=== PATIENT | female | born 1990 | race Caucasian/White ===

== ENCOUNTER 2023-08-20 15:00 | Emergency (ER) | payer OTHER, SELFPAY ==
[2023-08-20 15:02] VITALS: BP 175/112
[2023-08-20 16:34] VITALS: BMI 59.5
[2023-08-20 16:48] VITALS: BP 133/94
[2023-08-20 17:05] LABS: % Basophils 0.2 % (0-2); % Eosinophils 2.1 % (0-6); % Immature Granulocytes 0.5 % (0-0.5); % Lymphocytes 24.9 % (20.5-51.1); % Monocytes 5.1 % (1.7-9.3); % Neutrophils 67.2 % (42.2-75.2); Absolute Eosinophils 0.2 10^3/uL (0-0.7); Absolute Immature Granulocytes 0.1 10^3/uL (0-0.05); Absolute Lymphocytes 2.5 10^3/uL (1.2-3.4); Absolute Monocytes 0.5 10^3/uL (0.1-0.6); Absolute Neutrophils 6.8 10^3/uL (1.4-6.5); Hematocrit 44.3 % (37.0-47.0); Hemoglobin 15.6 g/dL (12.0-16.0); Mean Corp Hgb Conc. 35.2 g/dL (33.0-37.0); Mean Corpuscular Hgb 27.3 pg (27.0-31.0); Mean Corpuscular Volume 77.6 fL (81.0-99.0); Mean Platelet Volume 10.8 fL (7.4-10.4); Nucleated Red Blood Cells % 0 %; Platelet Count 330 10^3/uL (130-400); Red Blood Cell Count 5.71 10^6/uL (4.20-5.40); Red Cell Dist. Width 13.3 % (11.5-14.5); White Blood Cell Count 10.1 10^3/uL (4.8-10.8)
[2023-08-20 17:08] LABS: Urine Albumin Trace (Neg - Trace); Urine Bilirubin 1+ (Negative); Urine Character Clear (Clear); Urine Color Yellow; Urine Glucose Negative (Negative); Urine Ketone 2+ (Negative); Urine Leukocyte Trace (Negative); Urine Nitrite Negative (Negative); Urine Occult Blood 4+ (Negative); Urine Specific Gravity 1.025 (<1.030); Urine Urobilinogen Negative (Neg - 1+)
[2023-08-20 17:13] LABS: HCG, Serum Qualitative Screen Negative
[2023-08-20 17:17] LABS: ALT (SGPT) 44 U/L (0-35); AST (SGOT) 41 U/L (14-36); Albumin 4.6 g/dl (3.5-5.0); Alkaline Phosphatase 97 U/L (38-126); Blood Urea Nitrogen 10 mg/dl (7-17); Calcium 9.4 mg/dl (8.4-10.2); Carbon Dioxide 23 mmol/L (22-30); Chloride 105 mmol/L (98-107); Estimated Creatinine Clearance > 125 ml/min; Glucose 94 mg/dl (70-99); Lipase 139 U/L (23-300); Potassium 3.5 mmol/L (3.5-5.1); Sodium 140 mmol/L (135-145); Total Bilirubin 0.8 mg/dl (0.2-1.3); Total Protein 7.9 g/dl (6.3-8.2); eGFR > 60.00
[2023-08-20 17:21] LABS: Urine Squamous Cell 16-20 /LPF (Few)
[2023-08-20 17:24] LABS: Urine Bacteria Many (Negative)
--- NOTE | 2023-08-20 17:25 | ED.GENMED ---
History of Present Illness
General
Chief Complaint: Abdominal Pain
Source: patient
Exam Limitations: none
Time Seen by Provider: 08/20/23 16:53
Nursing documentation reviewed up to this point in time: agreed with
Travel History
Have you had any contact with someone who has COVID-19?: No
Do you have any symptoms of coronavirus? Fever > 100 degrees, chills, cough, shortness of breath, sore throat, loss of taste or smell, muscle aches, or headache?: No
History of Present Illness
History of Present Illness:
Patient status post cholecystectomy 10 years ago, presents to ED secondary to recurrent epigastric pain radiating to the back over the past 1 week. Epigastric pain described as sharp, without any alleviating or exacerbating factors. Patient states
that her symptoms are similar to what she has experienced in the past, secondary to pancreatitis. Denies fever or chills. Reports nausea sensation without vomiting, along with diarrhea. Denies recent travel. Denies sick contact. Denies trauma.
Patient does report starting new blood pressure medication as well as depression medication 2 months ago.
Past History
Past History
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
ED Past Surgical History: Cholecystectomy
Social History
Tobacco: Non-smoker
Living: with family
Review of Systems
Review of Systems
Allergies reviewed?: Yes
All Other Systems: ROS reviewed and negative except as documented in HPI and ROS
Constitutional: Reports no symptoms; Denies fever
EENT: Reports no symptoms
Respiratory: Reports no symptoms
Cardiac: Reports no symptoms
ABD/GI: Reports abdominal pain, nausea and diarrhea; Denies vomiting
: Reports no symptoms
Musculoskeletal: Reports no symptoms
Skin: Reports no symptoms
Neurological: Reports no symptoms
Phy Exam
Physical Exam
Physical Exam:
Physical Exam
General: no apparent distress, not acutely ill. afebrile. overweight
Head: nc/at. eomi
Neck: supple. no meningeal signs.
Heart: s1/s2 regular rate and rhythm, no murmur. equal radial pulses.
Lungs: no acute respiratory distress. clear bilaterally
Abdomen: normal bowel sounds. not tender.
Neuro: alert and oriented. no focal neurological deficits
Skin: no rash
Psychiatric: well kept. interactive and cooperative
Extremities: no edema. no calf tenderness.
Course
Orders/Labs/Results
Orders:
Orders
08/20/23 15:06
Test Result ONCE
08/20/23 16:45
Complete Blood Count/With Diff Urgent
Comprehensive Metabolic Panel Urgent
HCG, Serum Qualitative Screen Urgent
Lipase Urgent
08/20/23 16:52
UA Reflex to Culture [Urinalysis Reflex To Culture] Urgent
Date Specimen was Collected: 08/20/23
Time Specimen was Collected: 16:51
Urine Microscopic Reflex Cult Urgent
Urine Culture Urgent
WARREN Source: U
Specimen Description:
Date Specimen was Collected: 08/20/23
Time Specimen was Collected: 16:51
08/20/23 17:24
US Abdomen Complete/Upper Urgent
Comment: hx cholecystectomy
Reason For Exam: epigastric/RUQ pain
08/20/23 17:27
0.9% Sodium Chloride 500 ml [Nss] 500 ml IV BOLUS
Abnormal Lab Results
08/20/23 08/20/23
16:45 16:52
RBC 5.71 H 10^6/uL
(4.20-5.40)
MCV 77.6 L fL
(81.0-99.0)
MPV 10.8 H fL
(7.4-10.4)
Abs Immat Gran (auto) 0.1 H 10^3/uL
(0-0.05)
Absolute Neuts (auto) 6.8 H 10^3/uL
(1.4-6.5)
AST 41 H U/L
(14-36)
ALT 44 H U/L
(0-35)
Urine Ketones 2+ A
(Negative)
Ur Occult Blood Reflex 4+ A
(Negative)
Urine Bilirubin 1+ A
(Negative)
Leukocyte Esterase Rfl Trace A
(Negative)
Urine RBC 3-6 A /HPF
(0-2)
Urine Bacteria (Reflex) Many A
(Negative)
08/20/23 16:45
08/20/23 16:45
Vital Signs
Initial and Last Documented VS:
Initial Vital Signs
Temp Pulse Resp BP Pulse Ox
98.4 F 98 16 175/112 96
08/20/23 15:02 08/20/23 15:02 08/20/23 15:02 08/20/23 15:02 08/20/23 15:02
Last Documented Vital Signs
Temp Pulse Resp BP Pulse Ox
98.4 F 74 16 143/98 99
08/20/23 15:02 08/20/23 19:00 08/20/23 15:02 08/20/23 18:09 08/20/23 19:00
MDM/Problems Addressed
MDM/Problems Addressed:
Patient with an unremarkable workup in ED, including blood work and ultrasound. Patient otherwise remains afebrile, hemodynamically stable, and nontoxic-appearing. Patient's presenting symptoms likely secondary to gastritis versus reflux versus
less likely biliary colic versus pancreatitis. Patient will be discharged home in stable condition to the care of her mother, with recommendation to follow-up with GI physician as an outpatient, if symptoms persist. In the meantime, recommended
dietary modification along with PPI to be taken as an outpatient. Patient advised to return to ED with worsening symptoms, i.e. fever/worsening pain/vomiting. Patient expresses understanding at time of discharge.
*Radiology
Radiology exam reviewed: radiology read reviewed
*Critical Care Note
Total Time (30-74mins, 75-104mins- exclusive of procedures): Not Applicable
ED Attending Note
-
Portions of this chart may have been created with voice recognition software.� Occasional wrong word or��sound alike� substitutions may have occurred due to the inherent limitations of voice recognition software.
Discharge Plan
Departure
Patient Disposition: Home (Routine Discharge)
Date of Disposition: 08/20/23
Time of Disposition: 20:02
Patient with high blood pressure during this ER visit?: Yes
Condition: Good
Discharge Problem:
Abdominal pain
Instructions: [place] Diet, Gastritis (DC), Ulcer and Gastritis Diet, Abdominal Pain
Prescriptions:
No Action
chlorthalidone 25 MG tablet
25 mg PO DAILY
sertraline 50 MG tablet
50 mg PO HS
lisinopril 20 MG tablet
20 mg PO DAILY Qty: 30 0RF
Referrals:
Racquel Evans MD [Family Provider] -
Yamil Ryan MD [Active] -
Activity Restrictions/Additional Instructions:
As discussed, please follow-up with your primary care physician and/or referred to GI physician for further evaluation and treatment.
Interventions
Interventions:
*Risk Screen - Suicide Last Done: 08/20/23 16:33
*General Assessment Last Done: 08/20/23 16:33
*Neglect/Abuse Screening Last Done: 08/20/23 16:33
ED- Fall Risk Assessment Last Done: 08/20/23 18:33
*ED COVID-19 Vaccine History Last Done: 08/20/23 16:33
*Nursing Disposition Last Done: 08/20/23 20:29
VQ-Obpbnj-Vemrbicarq Assessment Last Done: 08/20/23 16:31
Discharge Date and Time
Discharge Date/Time: 08/20/23 20:29
[2023-08-20 18:09] VITALS: BP 143/98
[2023-08-20] MEDS: NSS 500 IV (18:11)
== END 2023-08-20 20:29 | disposition home or self-care (01) ==
LOC: EMR 15:00
PROVIDERS: Emergency Medicine; EMERGENCY PHYSICIAN Emergency Medicine; FAMILY PHYSICIAN Internal Medicine
DX: R10.13 Epigastric pain (principal); F32.A Depression, unspecified; Z90.49 Acquired absence of other specified parts of digestive tract
CPT/HCPCS: 99284; 96360; 76700; 80053; 81003; 81015; 83690; 84703; 85025; 87086

== ENCOUNTER 2023-11-07 06:24 | Day surgery (SDC) | payer OTHER, SELFPAY ==
[2023-11-07 08:59] VITALS: BMI 57.1
[2023-11-07 09:00] VITALS: BP 154/84; BMI 57.1
[2023-11-07 09:45] VITALS: BP 154/84
[2023-11-07 09:47] VITALS: BP 154/98
[2023-11-07 10:00] VITALS: BP 139/93
[2023-11-07 10:15] VITALS: BP 125/72
[2023-11-07 10:45] VITALS: BP 131/80
== END 2023-11-07 11:01 | disposition home or self-care (01) ==
LOC: SDS 06:24
PROVIDERS: ATTENDING PHYSICIAN Internal Medicine Gastroenterology
DX: K29.50 Unspecified chronic gastritis without bleeding (principal); K20.90 Esophagitis, unspecified without bleeding; K22.89 Other specified disease of esophagus; R10.13 Epigastric pain; R19.7 Diarrhea, unspecified; F45.8 Other somatoform disorders
CPT/HCPCS: 43239; 88305; 88342

== ENCOUNTER → 2025-02-25 11:26 | Outpatient (REF) | payer OTHER, SELFPAY | LOC: HWRAD 11:26 | PROVIDERS: ATTENDING PHYSICIAN Physician Assistant Medical | DX: M25.572 Pain in left ankle and joints of left foot (principal) | CPT/HCPCS: 73610 ==